=== PATIENT | male | born 1980 | race Caucasian/White ===

== ENCOUNTER 2016-08-06 14:02 | Emergency (ER) | payer OTHER ==
--- NOTE | 2016-08-06 14:04 | EDM.PDOC ---
[id number]: STOMACH/BACK PAINS, NAUSEA Time Seen by Provider: 08/06/16 14:04 Source of Information: Reports: Patient, RN, RN Notes Reviewed History Limitations: Reports: No Limitations - History of Present Illness INITIAL COMMENTS - FREE TEXT/NARRATIVE: C/O recurrent bouts of epigastric pain and burning for months. Over the past 3 days he c/o worsening of the Sx's with onset of nausea. Denies vomiting, radiating pain, CP, SOB, diarrhea, constipation, blood in stool, black/dark stool or melena. 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 Bilateral Upper Abdomen Pain Score (Numeric/FACES): 7 - Related Data Allergies Allergy/AdvReac Type Severity Reaction Status Date / Time No Known Allergies Allergy Verified 08/06/16 14:21 Home Meds: Home Meds Dexlansoprazole [Dexilant] 1 cap PO DAILY 08/06/16 [History] Montelukast [Singulair] 10 mg PO DAILY 08/06/16 [History] Simvastatin [Zocor] 40 mg PO DAILY 08/06/16 [History] Past Medical History Cardiovascular History: Reports: High Cholesterol, Other (See Below) (chest wall pain.) Gastrointestinal History: Reports: GERD, Other (See Below) (Barretts esophagus.) Musculoskeletal History: Reports: Other (See Below) (elbow pain. Hip pain. Shoulder pain.) - Past Surgical History HEENT Surgical History: Reports: Adenoidectomy, Tonsillectomy GI Surgical History: Reports: Colonoscopy, EGD (x3.) Male Surgical History: Reports: Vasectomy Endocrine Surgical History: Reports: Other (See Below) (neck exploration) Musculoskeletal Surgical History: Reports: Other (See Below) (foot surgery-- midfoot exostectomy.) Social & Family History - Family History Family Medical History: Noncontributory - Alcohol Use Alcohol Use History: No - Recreational Drug Use Recreational Drug Use: No - Living Situation & Occupation Living situation: Reports: with Family Occupation: Employed ED ROS GENERAL - Review of Systems Review Of Systems: ROS reveals no pertinent complaints other than HPI. ED EXAM, GENERAL - Physical Exam Exam: See Below Exam Limited By: No Limitations General Appearance: Alert, WD/WN, No Apparent Distress Nose: Normal Inspection Throat/Mouth: Normal Inspection Head: Atraumatic, Normocephalic Neck: Normal Inspection Respiratory/Chest: No Respiratory Distress, Lungs Clear, Normal Breath Sounds, No Accessory Muscle Use, Chest Non-Tender Cardiovascular: Normal Peripheral Pulses, Regular Rate, Rhythm, No Edema, No Gallop, No JVD, No Murmur, No Rub GI/Abdominal: Normal Bowel Sounds, Soft, No Distention, No Abnormal Bruit, Tender (epigastric region). No: Guarding, Rigid, Rebound (Male) Exam: Deferred Rectal (Males) Exam: Deferred Back Exam: Normal Inspection Extremities: Normal Inspection Neurological: Alert, Oriented, CN II-XII Intact, Normal Cognition, Normal Gait, No Motor/Sensory Deficits Psychiatric: Normal Affect, Normal Mood Skin Exam: Warm, Dry, Intact, Normal Color, No Rash EKG INTERPRETATION EKG Date: 08/06/16 Time: 14:57 Rhythm: Other (sinus bradycardia) Rate (Beats/Min): 48 [place]: Normal P-Wave: Present QRS: Other (consider left ventricular hypertrophy.) ST-T: Normal QT: Normal Course - Vital Signs Last Recorded V/S: Last Vital Signs Temp 36.7 C 08/06/16 17:27 Pulse 55 L 08/06/16 17:27 Resp 18 08/06/16 17:27 BP 144/91 H 08/06/16 17:27 Pulse Ox 97 08/06/16 17:27 - Orders/Labs/Meds Labs: Laboratory Tests 08/06/16 08/06/16 08/06/16 Range/Units 14:30 14:30 14:30 WBC 6.8 (5.0-10.0) 10^3/uL RBC 5.12 (4.6-6.2) 10^6/uL Hgb 17.0 (14.0-18.0) g/dL Hct 47.1 (40.0-54.0) % MCV 92.0 (80-100) fL MCH 33.2 (27.0-34.0) pg MCHC 36.1 H (33.0-35.0) g/dL Plt Count 217 (150-450) 10^3/uL Neut % (Auto) 63.1 (42.2-75.2) % Lymph % (Auto) 26.6 (20.5-50.1) % [place] % (Auto) 8.4 H (2-8) % Eos % (Auto) 1.2 (1.0-3.0) % Baso % (Auto) 0.7 (0.0-1.0) % D-Dimer, Quantitative < 100 (0-400) ng/mL Sodium 142 (135-145) mmol/L Potassium 4.4 (3.6-5.0) mmol/L Chloride 102 (101-111) mmol/L Carbon Dioxide 29.0 (21.0-31.0) mmol/L Anion Gap 15.4 BUN 10 (7-18) mg/dL Creatinine 0.9 (0.6-1.3) mg/dL Est Cr Clr Drug Dosing 107.67 mL/min Estimated GFR (MDRD) > 60 BUN/Creatinine Ratio 11.11 Glucose 95 (74-105) mg/dL Calcium 10.0 (8.4-10.2) mg/dl Total Bilirubin 0.9 (0.2-1.0) mg/dL AST 25 (10-42) IU/L ALT 30 (10-60) IU/L Alkaline Phosphatase 47 (42-121) IU/L Creatine Kinase 104 (26-174) IU/L Troponin I < 0.02 (0.00-0.02) ng/ml C-Reactive Protein (0.0-1.3) mg/dL Total Protein 7.9 (6.7-8.2) g/dl Albumin 4.8 (3.2-5.5) g/dl Globulin 3.1 Albumin/Globulin Ratio 1.55 Amylase 62 (28-100) U/L Lipase 26 (22-51) U/L Urine Color (YELLOW) Urine Appearance (CLEAR) Urine pH (5.0-9.0) Ur Specific [place] (1.005-1.030) Urine Protein (NEGATIVE) Urine Glucose (UA) (NEGATIVE) Urine Ketones (NEGATIVE) Urine Occult Blood (NEGATIVE) Urine Nitrite (NEGATIVE) Urine Bilirubin (NEGATIVE) Urine Urobilinogen (0.2-1.0) mg/dL Ur Leukocyte Esterase (NEGATIVE) Urine RBC /HPF Urine WBC (0-5/HPF) /HPF Urine Bacteria (0-FEW/HPF) /HPF Urine Mucus /LPF Urine Opiates Screen (NEGATIVE) Ur Oxycodone Screen (NEGATIVE) Urine Methadone Screen (NEGATIVE) Ur Barbiturates Screen (NEGATIVE) U Tricyclic Antidepress (NEGATIVE) Ur Phencyclidine Scrn (NEGATIVE) Ur Amphetamine Screen (NEGATIVE) U Methamphetamines Scrn (NEGATIVE) Urine MDMA Screen (NEGATIVE) U Benzodiazepines Scrn (NEGATIVE) Urine Cocaine Screen (NEGATIVE) U Marijuana (THC) Screen (NEGATIVE) 08/06/16 08/06/16 08/06/16 Range/Units 14:30 16:09 16:09 WBC (5.0-10.0) 10^3/uL RBC (4.6-6.2) 10^6/uL Hgb (14.0-18.0) g/dL Hct (40.0-54.0) % MCV (80-100) fL MCH (27.0-34.0) pg MCHC (33.0-35.0) g/dL Plt Count (150-450) 10^3/uL Neut % (Auto) (42.2-75.2) % Lymph % (Auto) (20.5-50.1) % [place] % (Auto) (2-8) % Eos % (Auto) (1.0-3.0) % Baso % (Auto) (0.0-1.0) % D-Dimer, Quantitative (0-400) ng/mL Sodium (135-145) mmol/L Potassium (3.6-5.0) mmol/L Chloride (101-111) mmol/L Carbon Dioxide (21.0-31.0) mmol/L Anion Gap BUN (7-18) mg/dL Creatinine (0.6-1.3) mg/dL Est Cr Clr Drug Dosing mL/min Estimated GFR (MDRD) BUN/Creatinine Ratio Glucose (74-105) mg/dL Calcium (8.4-10.2) mg/dl Total Bilirubin (0.2-1.0) mg/dL AST (10-42) IU/L ALT (10-60) IU/L Alkaline Phosphatase (42-121) IU/L Creatine Kinase (26-174) IU/L Troponin I (0.00-0.02) ng/ml C-Reactive Protein < 0.5 (0.0-1.3) mg/dL Total Protein (6.7-8.2) g/dl Albumin (3.2-5.5) g/dl Globulin Albumin/Globulin Ratio Amylase (28-100) U/L Lipase (22-51) U/L Urine Color Yellow (YELLOW) Urine Appearance Clear (CLEAR) Urine pH 6.0 (5.0-9.0) Ur Specific [place] 1.015 (1.005-1.030) Urine Protein Negative (NEGATIVE) Urine Glucose (UA) Negative (NEGATIVE) Urine Ketones Negative (NEGATIVE) Urine Occult Blood Negative (NEGATIVE) Urine Nitrite Negative (NEGATIVE) Urine Bilirubin Negative (NEGATIVE) Urine Urobilinogen 0.2 (0.2-1.0) mg/dL Ur Leukocyte Esterase Negative (NEGATIVE) Urine RBC Not seen /HPF Urine WBC 0-5 (0-5/HPF) /HPF Urine Bacteria Rare (0-FEW/HPF) /HPF Urine Mucus Moderate H /LPF Urine Opiates Screen Negative (NEGATIVE) Ur Oxycodone Screen Negative (NEGATIVE) Urine Methadone Screen Negative (NEGATIVE) Ur Barbiturates Screen Negative (NEGATIVE) U Tricyclic Antidepress Negative (NEGATIVE) Ur Phencyclidine Scrn Negative (NEGATIVE) Ur Amphetamine Screen Negative (NEGATIVE) U Methamphetamines Scrn Negative (NEGATIVE) Urine MDMA Screen Negative (NEGATIVE) U Benzodiazepines Scrn Negative (NEGATIVE) Urine Cocaine Screen Negative (NEGATIVE) U Marijuana (THC) Screen Negative (NEGATIVE) Meds: Medications Discontinued Medications Generic Name Dose Route Start Last Admin Trade Name Freq PRN Reason Stop Dose Admin Hydrocodone Bitart/Acetaminophen 1 tab 08/06/16 18:05 08/06/16 18:27 [place] 325-10 Mg PO 08/06/16 18:06 1 tab ONETIME ONE Administration Al Hydroxide/Mg Hydroxide 30 ml 08/06/16 17:21 08/06/16 17:31 Gi Cocktail PO 08/06/16 17:22 30 ml ONETIME ONE Administration Sodium Chloride 1,000 mls @ 999 mls/hr 08/06/16 14:22 08/06/16 14:51 Normal Saline IV 08/06/16 15:22 999 mls/hr .BOLUS ONE Administration Ketorolac Tromethamine 30 mg 08/06/16 14:22 08/06/16 14:55 Toradol IVPUSH 06/12/17 14:23 30 mg ONETIME ONE Administration Ondansetron HCl 4 mg 08/06/16 14:22 08/06/16 14:51 Zofran IV 08/06/16 14:23 4 mg ONETIME ONE Administration Sodium Chloride 10 ml 08/06/16 14:20 08/06/16 14:49 Saline Flush FLUSH 10 ml ASDIRECTED PRN Administration Keep Vein Open Departure - Departure Time of Disposition: 18:04 Disposition: Home, Self-Care 01 Condition: Fair Clinical Impression: Epigastric pain Gastritis Qualifiers: Gastritis type: unspecified gastritis Chronicity: acute Gastritis bleeding: without bleeding Qualified Code(s): K29.00 - Acute gastritis without bleeding - Discharge Information Instructions: Gastritis, Adult, [id number], Peptic Ulcer, [id number] Forms: ED Department Discharge Additional Instructions: RX: Zofran 4mg. RX: Carafate 1g. RX: [place]rick 5mg/325mg. Continue current medications as prescribed. Follow up in the clinic with your primary doctor or GI specialist for further evaluation and treatment.
[2016-08-06] MEDS ORDERED: Sodium Chloride 0.9% 10 ML Syringe FLUSH PRN (14:20)
[2016-08-06] MEDS ORDERED: Sodium Chloride 0.9% 1,000 ML IV ONE (14:22)
[2016-08-06] MEDS ORDERED: Ondansetron 4 MG/2 ML SDV IV ONE (14:22)
[2016-08-06] MEDS ORDERED: Ketorolac 30 MG/ML SDV IVPUSH ONE (14:22)
[2016-08-06 14:54] LABS: CHLORIDE,CL 102 mmol/L (101-111); SODIUM,NA 142 mmol/L (135-145)
--- NOTE | 2016-08-06 15:18 | CR ---
Clinical history: 36-year-old male diagnosed 2 weeks ago with "pneumonia" (Chung). Follow-up plea se. Interpretation: Negative. No sign of focal lobar pneumonia, atelectasis or collapse. Normal cardiac silhouette without cephalization of vascular flow, signs of alveolar edema or depende nt pleural effusion. Subtle peribronchial "cuffing" (smoker?). No pneumothorax. Prerna thorax unremarkable.
[2016-08-06] MEDS ORDERED: GI Cocktail Oral Solution 30 ML PO ONE (17:21)
[2016-08-06 17:28] VITALS: BP 144/91
[2016-08-06] MEDS ORDERED: Acetaminophen/HYDROcodone 325-10 MG Tab PO ONE (18:05)
--- NOTE | 2016-08-08 13:56 | EKG ---
08/06/2016- EDIL LYONS - EKG per my reading shows sinus bradycardia at a rate of 48. MOD /[id number]
== END 2016-08-06 18:34 | disposition home or self-care (01) ==
LOC: DL.ED 14:02
DX: K29.00 Acute gastritis without bleeding (principal); E78.00 Pure hypercholesterolemia, unspecified; K21.9 Gastro-esophageal reflux disease without esophagitis; Z98.890 Other specified postprocedural states; Z98.52 Vasectomy status; Z79.899 Other long term (current) drug therapy
CPT/HCPCS: 36415; 71020; 80053; 80305; 81001; 82150; 82550; 83690; 84484; 85025; 85379; 86140; 93005; 96361; 96374; 99285; A9270; J1885; J2405; J7030; J7050